=== PATIENT | female | born 1980 | race Caucasian/White ===

== ENCOUNTER → 2023-02-23 | Day surgery (SDC) | payer BC ==
[2023-02-17 14:58] VITALS: BMI 34.1
[~2023-02-23] MED LIST: LACTATED RINGERS 1,000 ML IV SCH; LIDOCAINE 1% (10MG/ML) FOR IV START INTRADERMA PRN; PROPOFOL 10 MG/ML 20 ML VIAL IV ONE
--- NOTE | 2023-02-23 11:50 | P.PCN ---
Date of Procedure: 02/23/23 Procedure(s) Performed: BRIEF HISTORY: Patient is a 42-year-old pleasant white female scheduled for an elective colonoscopy as a part of surveillance of long-standing history of ulcerative colitis diagnosed 15 years ago.. Presently on Entyvio infusions every 8 weeks for the last 3 years and is in clinical remission PROCEDURE PERFORMED: Colonoscopy with biopsy PREOPERATIVE DIAGNOSIS: Long-standing history of ulcerative colitis. IV sedation per Anesthesia. PROCEDURE: After informed consent was obtained, the patient, was brought into the endoscopy unit. IV sedation was administered by Anesthesia under continuous monitoring. Digital rectal examination was normal. Initially the Olympus CF-160 flexible video colonoscope was then inserted in the rectum, gradually advanced into the cecum without any difficulty. Careful examination was performed as the scope was gradually being withdrawn. Ileocecal valve and the appendiceal orifice were visualized and appeared normal. Prep was excellent. Mucosa of the cecum, ascending colon, transverse colon, descending colon, sigmoid colon, and rectum appeared normal. Random biopsies were done from the cecum to rectum at every 10 cm intervals to rule out dysplasia Retroflexion was performed in the rectum and no lesions were seen. The patient tolerated the procedure well. IMPRESSION: Normal-appearing colon from rectum to cecum with no evidence of active colitis or colorectal neoplasia. RECOMMENDATIONS: Findings of this examination were discussed with the patient as well as her family. She was advised to follow with the biopsy results. If there is no evidence of dysplasia she can have a repeat colonoscopy in 2 years..
[2023-02-23 12:06] VITALS: BP 108/73; PULSE 77; RESP 14
== END ==
LOC: ORWHC2ENDO 09:44
PROVIDERS: ATTEND Internal Medicine Gastroenterology
DX: K51.90 Ulcerative colitis, unspecified, without complications (principal); Z88.0 Allergy status to penicillin; Z88.1 Allergy status to other antibiotic agents
CPT/HCPCS: 81025; 88305; 45380; J2704

== ENCOUNTER → 2023-03-05 | Outpatient (CLI) | payer BC ==
[2023-03-09 11:32] LABS: Cucumber IgE <0.10 kU/L (<0.10); Cucumber IgE Class CLASS 0; Yeast Bakers/Brew IgE <0.10 kU/L (<0.10); Yeast Bakers/Brew IgE Class CLASS 0
[2023-03-09 11:33] LABS: Avocado Class CLASS 0; Banana IgE Class CLASS 0; Coffee IgE <0.10 kU/L (<0.10); Coffee IgE Class CLASS 0; Gluten IgE Class CLASS 0; Hazelnut IgE <0.10 kU/L (<0.10); Hazelnut IgE Class CLASS 0; Kiwi IgE <0.10 kU/L (<0.10); Kiwi IgE Class CLASS 0; Oat IgE Class CLASS 0; Watermelon IgE Class CLASS 0
[2023-03-09 17:14] LABS: Squash IgE <0.35 kU/L (<0.35); Squash IgE Class 0
== END | disposition home or self-care (01) ==
LOC: LABWHC1 09:47
PROVIDERS: ATTEND Otolaryngology
DX: J30.89 Other allergic rhinitis (principal); L20.84 Intrinsic (allergic) eczema; T78.00XA Anaphylactic reaction due to unspecified food, initial encounter
CPT/HCPCS: 36415; 86003

== ENCOUNTER 2025-02-09 11:14 | Day surgery (SDC) | payer BC ==
[2025-02-07 15:18] VITALS: BMI 34.1
[2025-02-09 12:18] VITALS: TEMP 98.1
[2025-02-09] MEDS: LACTATED RINGERS 1,000 ML IV SCH (12:27)
[2025-02-09] MEDS: IV FLUID CONTINUATION 1,000 ML IV ONE (12:27)
[2025-02-09] MEDS ORDERED: PROPOFOL 10 MG/ML 20 ML VIAL IV ONE (13:08)
--- NOTE | 2025-02-09 13:20 | P.PCN ---
Date of Procedure: 02/09/25 Procedure(s) Performed: BRIEF HISTORY: Patient is a 44-year-old pleasant white female scheduled for an elective colonoscopy as a part of screening for longstanding of ulcerative colitis diagnosed in 2007. She is maintained on Entyvio infusions every 8 weeks and remains in clinical remission PROCEDURE PERFORMED: Colonoscopy and biopsies. PREOPERATIVE DIAGNOSIS: Screening for long-standing history of ulcerative colitis. IV sedation per Anesthesia. PROCEDURE: After informed consent was obtained, the patient, was brought into the endoscopy unit. IV sedation was administered by Anesthesia under continuous monitoring. Digital rectal examination was normal. Initially the Olympus CF-160 flexible video colonoscope was then inserted in the rectum, gradually advanced into the cecum without any difficulty. Careful examination was performed as the scope was gradually being withdrawn. Ileocecal valve and the appendiceal orifice were visualized and appeared normal. Prep was excellent. Mucosa of the cecum, ascending colon, transverse colon, descending colon, sigmoid colon, and rectum appeared normal. Random biopsies were done from cecum to rectum at every 10 cm intervals to rule out dysplasia. Retroflexion was performed in the rectum and no lesions were seen. The patient tolerated the procedure well. IMPRESSION: Normal-appearing colon from rectum to cecum with no evidence of active colitis or colorectal neoplasia.. RECOMMENDATIONS: Findings of this examination were discussed with the patient as well as her family. Was advised to follow the biopsy results. If the biopsy is a negative for dysplasia, recommend repeat colonoscopy in 2 years
[2025-02-09 13:46] VITALS: BP 123/71; PULSE 81; RESP 17
== END 2025-02-09 14:06 | disposition home or self-care (01) ==
LOC: ORWHC2ENDO 11:14
PROVIDERS: ATTEND Internal Medicine Gastroenterology
DX: K51.90 Ulcerative colitis, unspecified, without complications
CPT/HCPCS: 45380; 81025; 88305